=== PATIENT | female | born 1970 | race African-American/Black ===

== ENCOUNTER 2017-10-01 12:14 | Emergency (ER) | payer BC ==
[~2017-10-01] VITALS: Ht 167.6 cm; Wt 80.0 kg
[2017-10-01] MEDS ORDERED: KETOROLAC TROMETHAMINE 30 MG/ML VIAL IM ONE (13:15)
[2017-10-01 13:52] VITALS: BP 122/87
== END 2017-10-01 14:33 | disposition home or self-care (01) ==
LOC: EMS 12:15
DX: M79.605 Pain in left leg (principal); M79.604 Pain in right leg; F17.210 Nicotine dependence, cigarettes, uncomplicated
CPT/HCPCS: 93971; 96372; 99284; 99406; J1885

== ENCOUNTER 2020-04-11 04:39 | Emergency (ER) | payer BC ==
[~2020-04-11] VITALS: Ht 167.6 cm; Wt 68.2 kg
[2020-04-11 04:41] VITALS: BP 148/91
[2020-04-11] MEDS ORDERED: ACETAMINOPHEN 500 MG TABLET PO ONE (05:00)
== END 2020-04-11 06:17 | disposition home or self-care (01) ==
LOC: EMS 04:39
DX: J02.9 Acute pharyngitis, unspecified (principal)
CPT/HCPCS: 87430